=== PATIENT | male | born 1965 | race Caucasian/White ===

== ENCOUNTER 2018-01-31 12:18 | Emergency (ER) | payer SELFPAY ==
[~2018-01-31 12:18] MED LIST: ALBU17I INH; AMOX875 PO; PRED10PA PO
[2018-01-31 12:45] VITALS: BP 126/67; PULSE 86; RESP 17; TEMP 98.4; O2SAT 100
[2018-01-31] MEDS ORDERED: KETOROLAC TROMETHAMINE 30 MG/ML (IVP) VIAL IV PUSH ONE (14:00)
[2018-01-31] MEDS ORDERED: SODIUM CHLOR 0.9% 1000 ML INJ 1,000 ML IV ONE (14:00)
--- NOTE | 2018-01-31 14:07 | PD ---
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 Patient states that the area "looked like a bug bite" 3 days ago but has since worsened. States that he cut the area open with a knife last night and attempted to squeeze pus from the wound. He endorses 10/ 10 pain in the ankle, worsened by weightbearing and range of motion. No alleviating factors reported. He denies fever, chills, nausea, vomiting. He has been ambulatory on the area with a limp. Patient states that he has not seen a doctor " in about 20 years." No treatment attempted at home. PFSH Past Medical History Autoimmune Disease: No Blood Disorders: No Cancer: Yes (LUNG CANCER, SARCOMA ABOVE LEFT EYE) Cardiovascular Problems: No Chemotherapy: No COPD: Yes Cerebrovascular Accident: No Diabetes: Yes Diminished Hearing: No Gastrointestinal Disorders: No GERD: Yes Genitourinary: No Headaches: No Hepatitis: Yes (HEP C) Hiatal Hernia: No Kidney Stones: No Musculoskeletal: No Neurologic: No Psychiatric: No Reproductive: No Respiratory: Yes (COPD) Integumentary: Yes (MRSA IN HIS LEFT UPPER ARM AND LEG) Immunizations Current: No Renal Failure: No Seizures: No Thyroid Disease: No Ulcer: No PNEUMOCCOCAL Vaccine (Year): 2 Past Surgical History Abdominal Surgery: Yes (L INGUINAL HERNIA REPAIRED) Cardiac Surgery: No Ear Surgery: No Endocrine Surgery: No Eye Surgery: No Genitourinary Surgery: No Gynecologic Surgery: No Neurologic Surgery: No Oral Surgery: No Pacemaker: No Thoracic Surgery: No Other Surgery: No Social History Alcohol Use: Yes (4 BEERS A WEEK) Tobacco Use: Yes (1 PK DAILY FOR 22 YEARS) 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) Allergies-Medications (Allergen,Severity, Reaction): Coded Allergies: hornet venom (Unverified Allergy, Severe, Anaphylaxis, 04/03/17) clarithromycin (Unverified Allergy, Intermediate, HIVES, 04/03/17) sulfamethoxazole (Unverified Allergy, Unknown, 04/03/17) trimethoprim (Unverified Allergy, Unknown, 04/03/17) Reported Meds & Prescriptions Reported Meds & Active Scripts Active Ibuprofen 800 Mg Tab 800 Mg PO Q8H PRN Clindamycin (Clindamycin HCl) 150 Mg Cap 450 Mg PO Q8HR 7 Days Amoxicillin 875 Mg Tab 875 Mg PO BID Prednisone 10 Mg Angel 60 Mg PO DAILY 5 Days Proventil Mdi (Albuterol Sulfate) 17 Gm Aero 2 Puff INH Q6 Review of Systems Except as stated in HPI: all other systems reviewed are Neg Physical Exam Narrative GENERAL: Well-nourished, well-developed patient deeply tanned white male in no acute distress.. SKIN: Focused skin assessment warm/dry. SKIN: There is an warm, erythematous, tender, indurated area in the left anterior ankle which measures about 2 cm in diameter. It is fluctuant, open with a small amount of purulent drainage present. There is a zone of inflammation around it but no lymphangitis. HEAD: Normocephalic. EYES: No scleral icterus. No injection or drainage. NECK: Supple, trachea midline. No JVD or lymphadenopathy. CARDIOVASCULAR: Regular rate and rhythm without murmurs, gallops, or rubs. RESPIRATORY: Breath sounds equal bilaterally. No accessory muscle use. Mild end expiratory wheezing. GASTROINTESTINAL: Abdomen soft, non-tender, nondistended. Right-sided inguinal hernia, easily reducible. MUSCULOSKELETAL: No cyanosis, or edema. FOCUSED RIGHT LOWER EXTREMITY EXAM: 2+ radial pulse. Entire foot is tender to palpation. Abscess on the anterior ankle. Fluctuance noted of the right malleolus. Edema to the mid jeong. Patient is able to weakly flex and extend the ankle. He is able to wiggle the toes. Sensation intact to light touch distally. Cap refill less than 2 seconds. BACK: Nontender without obvious deformity. No CVA tenderness. Data Data Last Documented VS Vital Signs Date Time Temp Pulse Resp B/P (MAP) Pulse Ox O2 Delivery O2 Flow Rate FiO2 01/31/18 14:17 77 18 128/79 (95) 97 Room Air 01/31/18 12:45 98.4 Orders Orders Complete Blood Count With Diff (01/31/18 13:57) Blood Culture (01/31/18 13:57) Wound Culture And Gram Stain (01/31/18 13:57) Iv Access Insert/Monitor (01/31/18 13:57) Comprehensive Metabolic Panel (01/31/18 13:57) Lactic Acid (01/31/18 13:57) Ankle, Complete ([id number]) (01/31/18 13:57) Ct Ankle W Iv Contrast (01/31/18 ) Sodium Chlor 0.9% 1000 Ml Inj (Ns 1000 M (01/31/18 14:00) Ketorolac Inj (Toradol Inj) (01/31/18 14:00) Iohexol 350 Inj (Omnipaque 350 Inj) (01/31/18 16:19) Clindamycin 900 Mg/Ns Premix (Cleocin 90 (01/31/18 16:45) Lidocaine Pf 1% Inj (Xylocaine-Mpf 1% In (01/31/18 16:45) Ed Discharge Order (01/31/18 17:36) Labs Laboratory Tests Test 01/31/18 14:14 White Blood Count 7.0 TH/MM3 Red Blood Count 4.64 MIL/MM3 Hemoglobin 14.5 GM/DL Hematocrit 41.2 % Mean Corpuscular Volume 88.7 FL Mean Corpuscular Hemoglobin 31.2 PG Mean Corpuscular Hemoglobin Concent 35.2 % Red Cell Distribution Width 16.7 % Platelet Count 204 TH/MM3 Mean Platelet Volume 8.2 FL Neutrophils (%) (Auto) 71.5 % Lymphocytes (%) (Auto) 15.9 % Monocytes (%) (Auto) 11.3 % Eosinophils (%) (Auto) 0.9 % Basophils (%) (Auto) 0.4 % Neutrophils # (Auto) 5.0 TH/MM3 Lymphocytes # (Auto) 1.1 TH/MM3 Monocytes # (Auto) 0.8 TH/MM3 Eosinophils # (Auto) 0.1 TH/MM3 Basophils # (Auto) 0.0 TH/MM3 CBC Comment DIFF FINAL Differential Comment Blood Urea Nitrogen 21 MG/DL Creatinine 1.34 MG/DL Random Glucose 167 MG/DL Total Protein 8.0 GM/DL Albumin 3.4 GM/DL Calcium Level 8.7 MG/DL Alkaline Phosphatase 105 U/L Aspartate Amino Transf (AST/SGOT) 15 U/L Alanine Aminotransferase (ALT/SGPT) 18 U/L Total Bilirubin 0.5 MG/DL Sodium Level 139 MEQ/L Potassium Level 5.1 MEQ/L Chloride Level 105 MEQ/L Carbon Dioxide Level 24.7 MEQ/L Anion Gap 9 MEQ/L Estimat Glomerular Filtration Rate 56 ML/MIN Lactic Acid Level 1.8 mmol/L MDM Medical Decision Making Medical Screen Exam Complete: Yes Emergency Medical Condition: Yes Differential Diagnosis Abscess versus cellulitis versus osteomyelitis versus diabetic foot wound versus other Narrative Course 52-year-old male with PMH of MRSA, 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 Patient's afebrile on presentation. On exam there is an area of abscess, weeping a small amount of purulent fluid, on the anterior right ankle with surrounding edema and cellulitic changes. IV was established. Blood cultures were obtained. Wound cultures were obtained. Patient was administered 1 L normal saline, 30 mg Toradol IV. CBC: WBC 7.0. Hemoglobin 14.5. CMP: BUN 21, creatinine 1.34. Lactic acid 1.8. Ankle x-ray: Soft tissue swelling without evidence of acute bony abnormality. CT ankle: Thick walled fluid collection along the anterior surface of the foot adjacent to the talus as described above compatible with a suspected clinical finding of an abscess. No evidence of ruptured tender or acute bony abnormality per radiology read. Abscess I&D was performed. Please see my procedure note for details. Patient was administered 900 mg clindamycin IV. He is prescribed 450 mg clindamycin 3 times daily 7 days. He is instructed to keep the wound clean, dry and covered , return to the ED in 2 days for packing removal. We discussed signs of worsening, reasons to return to the ED. Patient indicated understanding of instructions and is agreeable to care plan. He is stable and discharged home. Procedures Procedure Narrative INCISION AND DRAINAGE OF ABSCESS: The area was prepped and was sterilely draped. A subcutaneous wheal of 1 % Xylocaine with a total number 6 mL was used to anesthetize the area properly. A number 11 scalpel was used to make a 1 -cm incision across the area of the abscess. The abscess was drained, complex loculations were broken down, and irrigated with normal saline. Cultures were obtained. Packing was placed in the wound. Sterile dressing applied. Patient advised to have packing removed in two days. Diagnosis Primary Impression: Abscess Referrals: [facility] Additional Instructions: Rest, hydrate. Keep your wound clean, dry and covered. Begin antibiotics tomorrow and take them until every dose is gone. 800 mg ibuprofen up to 3 times a day as needed for pain. Return to the ED in 2 days for wound recheck and packing removal. Follow[facility] with the [facility]. Return to the ED for any urgent or emergent medical condition. Med/Other Pt SpecificInfo: Prescription(s) given Scripts Ibuprofen (Ibuprofen) 800 Mg Tab 800 MG PO Q8H Y for Pain/Inflammation, #15 TAB 0 Refills Prov: Ervin Jamison MD 01/31/18 Clindamycin (Clindamycin) 150 Mg Cap 450 MG PO Q8HR for Infection for 7 Days, CAP 0 Refills Prov: Ervin Jamison MD 01/31/18 Disposition: 01 DISCHARGE HOME Condition: Stable Evy Reyes Jan 31, 2018 14:07
[2018-01-31 14:17] VITALS: BP 128/79; PULSE 77; RESP 18; O2SAT 97
[2018-01-31 14:54] LABS: BASOPHIL % 0.4 % (0.0-2.0); EOSINOPHIL # 0.1 TH/MM3 (0-0.4); EOSINOPHIL % 0.9 % (0.0-4.0); HEMATOCRIT 41.2 % (39.0-51.0); HEMOGLOBIN 14.5 GM/DL (13.0-17.0); LYMPH % 15.9 % (9.0-44.0); LYMPHOCYTE # 1.1 TH/MM3 (1.0-4.8); MEAN CELL VOLUME 88.7 FL (80.0-100.0); MEAN CORPUSCULAR HEMOGLOBIN 31.2 PG (27.0-34.0); MEAN CORPUSCULAR HGB CONC 35.2 % (32.0-36.0); MEAN PLATELET VOLUME 8.2 FL (7.0-11.0); MONO % 11.3 % (0.0-8.0); MONOCYTE # 0.8 TH/MM3 (0-0.9); NEUT % 71.5 % (16.0-70.0); PLATELET COUNT 204 TH/MM3 (150-450); RED BLOOD COUNT 4.64 MIL/MM3 (4.50-5.90); RED CELL DISTRIBUTION WIDTH 16.7 % (11.6-17.2)
--- NOTE | 2018-01-31 14:58 | RADRPT ---
EXAM DATE: 01/31/2018 2:45 PM EDT AGE/SEX: 52 years / Male INDICATIONS: Anterior ankle pain. Patient stated he was bitten a week ago, but unsure by what. CLINICAL DATA: This is the patient's initial encounter. Patient reports that signs and symptoms have been present for 1 week and indicates a pain score of 7/10. MEDICAL/SURGICAL HISTORY: None. None. COMPARISON: No prior exams available for comparison. FINDINGS: Marked generalized soft tissue swelling of the right ankle extending into the hindfoot is noted. Ther e is no evidence of acute fracture, dislocation or significant arthropathy. CONCLUSION: Soft tissue swelling without evidence of acute bony abnormality. Electronically signed by: Michael Castro MD 01/31/2018 2:56 PM EDT
[2018-01-31 15:13] LABS: ALKALINE PHOSPHATASE 105 U/L (45-117); TOTAL BILIRUBIN ADULT 0.5 MG/DL (0.2-1.0)
[2018-01-31 15:21] LABS: ALBUMIN 3.4 GM/DL (3.4-5.0); ALT (GPT) 18 U/L (12-78); BICARBONATE 24.7 MEQ/L (21.0-32.0); BLOOD UREA NITROGEN 21 MG/DL (7-18); CALCIUM 8.7 MG/DL (8.5-10.1); CHLORIDE 105 MEQ/L (98-107); CREATININE 1.34 MG/DL (0.60-1.30); GLOMERULAR FILTRATION RATE 56 ML/MIN (>89); GLUCOSE,RANDOM 167 MG/DL (74-106); SODIUM (NA) 139 MEQ/L (136-145)
[2018-01-31 15:23] LABS: AST (GOT) 15 U/L (15-37)
[2018-01-31] MEDS ORDERED: IOHEXOL 350 MG/ML 10 ML VIAL (for RAD DIAG) IVCONTRAST ONE (16:19)
--- NOTE | 2018-01-31 16:26 | RADRPT ---
EXAM DATE: 01/31/2018 4:17 PM EDT AGE/SEX: 52 years / Male INDICATIONS: Abscess on top of right ankle, swelling. CLINICAL DATA: This is the patient's initial encounter. Patient reports that signs and symptoms have been present for 1 week and indicates a pain score of 9/10. MEDICAL/SURGICAL HISTORY: Chronic obstructive pulmonary disease. Hepatitis C. Diabetes. MRSA None. RADIATION DOSE: 3.11 CTDI (mGy) COMPARISON: No prior exams available for comparison. TECHNIQUE: Multiple contiguous axial images were acquired using a multirow detector CT scanner after intravenous administration of 70 ml Omnipaque 350 (iohexol) nonionic water-soluble contrast as a si ngle exam dose. Multiplanar reconstruction was performed in the sagittal and coronal planes. Using automated exposure control and adjustment of the mA and/or kV according to patient size, radiation do se was kept as low as reasonably achievable to obtain optimal diagnostic quality images. FINDINGS: Bones: The bony structures about the ankle are in normal alignment. The distal tibia, distal fibula , talus and calcaneus are intact. No fracture is seen. Joints: No significant arthropathy or bony hypertrophy is seen. Soft Tissues: A thick walled subcutaneous fluid collection is identified anterior to the extensor te ndons at the level of the talus. It measures 1.6 x 2 x 2.4 cm in size. There is no clear evidence of tendon rupture. Definite soft tissue swelling is seen surrounding the fluid collection. Other: No foreign bodies seen. Post Contrast: No abnormal areas of enhancement are seen in the marrow or soft tissues. CONCLUSION: 1. Thick-walled fluid collection along the anterior surface of the foot adjacent to the talus as jw cribed above compatible with the suspected clinical finding of an abscess. 2. No evidence of ruptured tendon or acute bony abnormality. Electronically signed by: Michael Castro MD 01/31/2018 4:25 PM EDT
[2018-01-31] MEDS ORDERED: LIDOCAINE HCL 1% PF 30 ML VIAL INFIL ONE (16:45)
[2018-01-31] MEDS ORDERED: CLINDAMYCIN 900 MG/NS PREMIX 50 ML IV ONE (16:45)
[2018-01-31] MEDS ORDERED: CLIN150C14 PO (16:52)
[2018-01-31] MEDS ORDERED: IBUP1TAB7 PO (16:52)
== END 2018-01-31 18:07 | disposition home or self-care (01) ==
LOC: NEPC 12:18
DX: L02.415 Cutaneous abscess of right lower limb (principal); B96.89 Other specified bacterial agents as the cause of diseases classified elsewhere; J44.9 Chronic obstructive pulmonary disease, unspecified; E11.9 Type 2 diabetes mellitus without complications; Z86.14 Personal history of Methicillin resistant Staphylococcus aureus infection; Z85.118 Personal history of other malignant neoplasm of bronchus and lung; B19.20 Unspecified viral hepatitis C without hepatic coma; F17.210 Nicotine dependence, cigarettes, uncomplicated; Z88.2 Allergy status to sulfonamides; Z79.899 Other long term (current) drug therapy
CPT/HCPCS: 10061; 73610; 73701; 80053; 83605; 85025; 87040; 87070; 87077; 87186; 96361; 96374; 96375; 99285; J1885; J7030; Q9967

== ENCOUNTER 2018-06-27 11:04 | Inpatient (IN) ==
[2018-06-27] MEDS ORDERED: MethylPREDNISolone Sod Succinate Inj 125 MG/2 ML Vial IV.PUSH ONE (11:23)
--- NOTE | 2018-06-27 11:35 | ED ---
HPI General Chief Complaint: Respiratory Symptoms Stated Complaint: Resp Time Seen by Provider: 06/27/18 11:23 Source: patient Limitations: no limitations History of Present Illness 53 YO M with PMH of IVDA, COPD, MRSA presents to the ED for evaluation of 2 week history of worsening shortness of breath and back pain radiating to the chest. Pain is sharp, intermittent, worsened by exertion. Rated 8/10 maximally. No chest pain currently. He states that he smoked crack 2 days ago. He states that he has not injected drugs in over 2 weeks. The patient reports chronic cough, now productive of yellow phlegm. He complains of pain in the left biceps. Onset 2 weeks ago while lifting a heavy box. Patient states that he is unable to fully extend the elbow. He denies numbness, tingling, weakness, of the extremity. He also complains of dysuria, urinary urgency and incontinence. He denies penile discharge, testicular pain, groin lesions. Also complains of a wound on the top of the right foot. Patient states that he was jabbed by the spine of a cactus. He states that he had an abscess there that ruptured and drained a large amount of purulent drainage. He has been ambulatory on the leg. He has never had a cardiac stress test. He has been smoking since he was a teenager. Related Data Home Medications Medication Instructions Recorded Confirmed No Known Home Medications 06/27/18 06/27/18 Allergies Allergy/AdvReac Type Severity Reaction Status Date / Time hornet venom Allergy Severe Anaphylaxis Unverified 04/03/17 20:07 clarithromycin Allergy Intermediate HIVES Unverified 04/03/17 20:07 sulfamethoxazole Allergy Unknown Hives Verified 06/27/18 11:23 trimethoprim Allergy Unknown Hives Verified 06/27/18 11:23 Review of Systems ROS: all other systems reviewed are negative [facility] Medical History Medical History COPD (chronic obstructive pulmonary disease) (Acute) Diabetes (Acute) Emphysema lung (Acute) Hernia (Acute) High cholesterol (Acute) Social History Social History Substance History: Active Abuse Second Hand Smoke Exposure: Yes Smoking Status: Current every day smoker Tobacco Type: Cigarettes How Often Do You Have a Drink Containing Alcohol: Never Recent Travel in [place] within the Last 8 Weeks: No Recent Out of Country Travel within the Last 8 Weeks: No Substance Abuse Detail Crack/Cocaine: Substance Use Status: Active Route Used Substance Abuse: Inhalation Reason for Use: Feels Good and Get High Heroin: Substance Use Status: Active Route Used Substance Abuse: Intravenously Reason for Use: Get High Immunization History Tetanus Immunization: Unsure Exam Narrative Exam Narrative: GENERAL: Thin, chronically ill-appearing white male in no acute distress. SKIN: Focused skin assessment warm/dry. 2-3 cm crust of the dorsum of the right foot. Mild localized erythema and tenderness. No fluctuance. No warmth. No drainage. Similar wounds on the lateral aspect left lower leg. HEAD: Atraumatic. Normocephalic. EYES: Pupils equal and round. No scleral icterus. No injection or drainage. ENT: No nasal bleeding or discharge. Mucous membranes pink and moist. NECK: Trachea midline. No JVD. CARDIOVASCULAR: Regular rate and rhythm. No murmur appreciated. RESPIRATORY: No accessory muscle use. Coarse breath sounds in all lung perez. Breath sounds equal bilaterally. GASTROINTESTINAL: Abdomen soft, non-tender, nondistended. Hepatic and splenic margins not palpable. MUSCULOSKELETAL: Visible deformity of the left bicep. Speeds test positive. Neurovascularly intact distally in the left extremity. Positive no clubbing. No cyanosis. No edema. NEUROLOGICAL: Awake and alert. No obvious cranial nerve deficits. Motor grossly within normal limits. Normal speech. PSYCHIATRIC: Appropriate mood and affect; insight and judgment normal. Course Initial Documented Vital Signs Temperature 99.3 F 06/27/18 11:14 Pulse Rate 78 06/27/18 11:14 Respiratory Rate 20 06/27/18 11:14 Blood Pressure 135/75 06/27/18 11:14 Pulse Oximetry 97 06/27/18 11:14 Last Documented Vital Signs Temperature 99.3 F 06/27/18 11:14 Pulse Rate 78 06/27/18 15:55 Respiratory Rate 17 06/27/18 15:55 Blood Pressure 126/65 06/27/18 15:55 Pulse Oximetry 100 06/27/18 15:55 Medical Decision Making MDM Narrative Medical decision making narrative: 53 YO M with PMH of IVDA, COPD, MRSA presents to the ED for evaluation of 2 week history of worsening shortness of breath and back pain radiating to the chest. Pain is sharp, intermittent, worsened by exertion. No chest pain currently. He states that he smoked crack 2 days ago. Afebrile, O2 saturations 97% on room air on presentation. On physical exam the lung sounds are coarse bilaterally. Of note the patient also has a suspected biceps tendon tear in the left arm and a resolving abscess of the dorsum of the right foot. Patient was administered IV steroids, duo nebs x2. Blood glucose 238, no leukocytosis, creatinine and BUN within normal limits. Elevated d-dimer triggered CTA which showed small infiltrates in the bilateral lung bases. On recheck patient reports improvement of his symptoms. He was administered a dose of doxycycline. He is agreeable to observation admission. I spoke with Dr. Garnica who agrees to accept the patient. Please see medicine notes for disposition. Medical Screen Exam Complete: Yes Emergency Medical Condition: Yes Differential Diagnosis Differential Diagnosis: COPD exacerbation versus PNA versus endocarditis versus ACS versus AAA versus biceps tendon rupture versus soft tissue abscess versus osteomyelitis versus UTI versus urethritis versus other Lab Data Result diagrams: 06/27/18 11:30 06/27/18 11:30 Lab Results 06/27/18 06/27/18 06/27/18 Range/Units 11:30 11:30 11:30 WBC 9.5 (4.0-11.0) th/mm3 RBC 4.38 L (4.50-5.90) mil/mm3 Hgb 13.1 (13.0-17.0) gm/dL Hct 37.8 L (39.0-51.0) % MCV 86.4 (80.0-100.0) fL MCH 29.8 (27.0-34.0) pg MCHC 34.5 (32.0-36.0) % RDW 22.4 H (11.6-17.2) % Plt Count 210 (150-450) th/mm3 MPV 9.5 (7.0-11.0) fL Neut % (Auto) 74.1 H (16.0-70.0) % Lymph % (Auto) 12.3 (9.0-44.0) % [place] % (Auto) 9.8 H (0.0-8.0) % Eos % (Auto) 2.6 (0.0-4.0) % Baso % (Auto) 1.2 (0.0-2.0) % Neut # (Auto) 7.0 (1.8-7.7) th/mm3 Lymph # (Auto) 1.2 (1.0-4.8) th/mm3 [place] # (Auto) 0.9 (0.0-0.9) th/mm3 Eos # (Auto) 0.3 (0.0-0.4) th/mm3 Baso # (Auto) 0.1 (0.0-0.2) th/mm3 WBC Differential . Differential Comment Auto diff final PT 13.0 H (9.8-11.6) sec INR 1.3 Ratio D-Dimer Quant (PE/DVT) 1.39 H (0.00-0.50) mg/L FEU Sodium 134 L (136-145) meq/L Potassium 4.5 (3.5-5.1) meq/L Chloride 100 (98-107) meq/L Carbon Dioxide 25.8 (21.0-32.0) meq/L Anion Gap 8 (5-15) meq/L BUN 11 (7-18) mg/dL Creatinine 0.76 (0.60-1.30) mg/dL Estimated GFR Greater than 89 (>89) mL/min Random Glucose 238 H (74-106) mg/dL Calcium 7.7 L (8.5-10.1) mg/dL Magnesium 1.8 (1.5-2.5) mg/dL Total Bilirubin 0.8 (0.2-1.0) mg/dL AST 286 H (15-37) U/L ALT 558 H (12-78) U/L Alkaline Phosphatase 796 H (45-117) U/L Troponin I Less than 0.02 L (0.02-0.05) ng/mL B-Natriuretic Peptide (0-100) pg/mL Total Protein 7.2 (6.4-8.2) g/dL Albumin 2.6 L (3.4-5.0) g/dL Urine Color (Yellw/Straw) Urine Clarity (Clear) Urine pH (5.0-8.5) Ur Specific [place] (1.002-1.035) Urine Protein (Neg-Trace) mg/dL Urine Glucose (UA) (Negative) mg/dL Urine Ketones (Negative) mg/dL Urine Occult Blood (Negative) Urine Nitrate (Negative) Urine Bilirubin (Negative) Urine Urobilinogen (Less than 2) mg/dL Ur Leukocyte Esterase (Negative) Urine RBC (0-3) /hpf Urine WBC (0-5) /hpf Urine Mucus (Occasional) /lpf Micro UA Comment Ur Microscopic Review Urine Culture Comments Urine Opiates Screen (Neg) Ur Barbiturates Screen (Neg) Ur Amphetamines Screen (Neg) U Benzodiazepines Scrn (Neg) Urine Cocaine Screen (Neg) U Cannabinoids Screen (Neg) Serum Alcohol (0-5) mg/dL Chlam trachomat DNA PCR (Not Detect) N.gonorrhoeae DNA (PCR) (Not Detect) 06/27/18 06/27/18 06/27/18 Range/Units 11:30 11:30 11:38 WBC (4.0-11.0) th/mm3 RBC (4.50-5.90) mil/mm3 Hgb (13.0-17.0) gm/dL Hct (39.0-51.0) % MCV (80.0-100.0) fL MCH (27.0-34.0) pg MCHC (32.0-36.0) % RDW (11.6-17.2) % Plt Count (150-450) th/mm3 MPV (7.0-11.0) fL Neut % (Auto) (16.0-70.0) % Lymph % (Auto) (9.0-44.0) % [place] % (Auto) (0.0-8.0) % Eos % (Auto) (0.0-4.0) % Baso % (Auto) (0.0-2.0) % Neut # (Auto) (1.8-7.7) th/mm3 Lymph # (Auto) (1.0-4.8) th/mm3 [place] # (Auto) (0.0-0.9) th/mm3 Eos # (Auto) (0.0-0.4) th/mm3 Baso # (Auto) (0.0-0.2) th/mm3 WBC Differential Differential Comment PT (9.8-11.6) sec INR Ratio D-Dimer Quant (PE/DVT) (0.00-0.50) mg/L FEU Sodium (136-145) meq/L Potassium (3.5-5.1) meq/L Chloride (98-107) meq/L Carbon Dioxide (21.0-32.0) meq/L Anion Gap (5-15) meq/L BUN (7-18) mg/dL Creatinine (0.60-1.30) mg/dL Estimated GFR (>89) mL/min Random Glucose (74-106) mg/dL Calcium (8.5-10.1) mg/dL Magnesium (1.5-2.5) mg/dL Total Bilirubin (0.2-1.0) mg/dL AST (15-37) U/L ALT (12-78) U/L Alkaline Phosphatase (45-117) U/L Troponin I (0.02-0.05) ng/mL B-Natriuretic Peptide 54 (0-100) pg/mL Total Protein (6.4-8.2) g/dL Albumin (3.4-5.0) g/dL Urine Color (Yellw/Straw) Urine Clarity (Clear) Urine pH (5.0-8.5) Ur Specific [place] (1.002-1.035) Urine Protein (Neg-Trace) mg/dL Urine Glucose (UA) (Negative) mg/dL Urine Ketones (Negative) mg/dL Urine Occult Blood (Negative) Urine Nitrate (Negative) Urine Bilirubin (Negative) Urine Urobilinogen (Less than 2) mg/dL Ur Leukocyte Esterase (Negative) Urine RBC (0-3) /hpf Urine WBC (0-5) /hpf Urine Mucus (Occasional) /lpf Micro UA Comment Ur Microscopic Review Urine Culture Comments Urine Opiates Screen Neg (Neg) Ur Barbiturates Screen Pos H (Neg) Ur Amphetamines Screen Neg (Neg) U Benzodiazepines Scrn Neg (Neg) Urine Cocaine Screen Pos H (Neg) U Cannabinoids Screen Pos H (Neg) Serum Alcohol Less than 3 (0-5) mg/dL Chlam trachomat DNA PCR (Not Detect) N.gonorrhoeae DNA (PCR) (Not Detect) 06/27/18 06/27/18 Range/Units 11:38 11:38 WBC (4.0-11.0) th/mm3 RBC (4.50-5.90) mil/mm3 Hgb (13.0-17.0) gm/dL Hct (39.0-51.0) % MCV (80.0-100.0) fL MCH (27.0-34.0) pg MCHC (32.0-36.0) % RDW (11.6-17.2) % Plt Count (150-450) th/mm3 MPV (7.0-11.0) fL Neut % (Auto) (16.0-70.0) % Lymph % (Auto) (9.0-44.0) % [place] % (Auto) (0.0-8.0) % Eos % (Auto) (0.0-4.0) % Baso % (Auto) (0.0-2.0) % Neut # (Auto) (1.8-7.7) th/mm3 Lymph # (Auto) (1.0-4.8) th/mm3 [place] # (Auto) (0.0-0.9) th/mm3 Eos # (Auto) (0.0-0.4) th/mm3 Baso # (Auto) (0.0-0.2) th/mm3 WBC Differential Differential Comment PT (9.8-11.6) sec INR Ratio D-Dimer Quant (PE/DVT) (0.00-0.50) mg/L FEU Sodium (136-145) meq/L Potassium (3.5-5.1) meq/L Chloride (98-107) meq/L Carbon Dioxide (21.0-32.0) meq/L Anion Gap (5-15) meq/L BUN (7-18) mg/dL Creatinine (0.60-1.30) mg/dL Estimated GFR (>89) mL/min Random Glucose (74-106) mg/dL Calcium (8.5-10.1) mg/dL Magnesium (1.5-2.5) mg/dL Total Bilirubin (0.2-1.0) mg/dL AST (15-37) U/L ALT (12-78) U/L Alkaline Phosphatase (45-117) U/L Troponin I (0.02-0.05) ng/mL B-Natriuretic Peptide (0-100) pg/mL Total Protein (6.4-8.2) g/dL Albumin (3.4-5.0) g/dL Urine Color Yellow (Yellw/Straw) Urine Clarity Hazy H (Clear) Urine pH 5.0 (5.0-8.5) Ur Specific [place] 1.021 (1.002-1.035) Urine Protein Negative (Neg-Trace) mg/dL Urine Glucose (UA) 500 or greater (Negative) mg/dL Urine Ketones Negative (Negative) mg/dL Urine Occult Blood Small H (Negative) Urine Nitrate Negative (Negative) Urine Bilirubin Negative (Negative) Urine Urobilinogen 4 or greater (Less than 2) mg/dL Ur Leukocyte Esterase Negative (Negative) Urine RBC 3 (0-3) /hpf Urine WBC 1 (0-5) /hpf Urine Mucus Few H (Occasional) /lpf Micro UA Comment Culture not ind Ur Microscopic Review Not Reportable Urine Culture Comments Culture not ind Urine Opiates Screen (Neg) Ur Barbiturates Screen (Neg) Ur Amphetamines Screen (Neg) U Benzodiazepines Scrn (Neg) Urine Cocaine Screen (Neg) U Cannabinoids Screen (Neg) Serum Alcohol (0-5) mg/dL Chlam trachomat DNA PCR Not detected (Not Detect) N.gonorrhoeae DNA (PCR) Not detected (Not Detect) Imaging Data Radiologist's impression: Chest X-Ray 06/27/18 11:23 CONCLUSION: No acute cardiopulmonary disease identified. Foot X-Ray 06/27/18 11:23 CONCLUSION: Unremarkable study. Upper Extremity Ultrasound 06/27/18 11:23 CONCLUSION: Heterogeneous fluid collection at the biceps myotendinous junction suggesting hematoma in the proper clinical setting. Recommend MRI of the elbow to evaluate for biceps tendon rupture versus biceps muscle tear. Chest CTA 06/27/18 12:29 CONCLUSION: 1. No evidence of pulmonary embolism. 2. Mild infiltrates are noted in both lower lung bases posteriorly. Discharge Plan Discharge Disposition Patient Disposition: 30 Still Patient Physicians Team ED Provider: Jeremy Anderson ED Midlevel Provider: Evy Reyes Primary Care Provider: UNKNOWN, Attending Provider: Laurie Garnica Discharge Interventions Interventions: Vital Signs Last Done: 06/27/18 15:55 Status ED Status: Admitted Observation Patient
--- NOTE | 2018-06-27 12:02 | XR ---
EXAM DATE: 06/27/2018 11:56 AM EST AGE/SEX: 53 years / Male INDICATIONS: Right foot pain from unknown injury, possible infection. CLINICAL DATA: This is the patient's initial encounter. Patient reports that signs and symptoms have been present for 1 day and indicates a pain score of 4/10. MEDICAL/SURGICAL HISTORY: None. None. COMPARISON: No prior exams available for comparison. FINDINGS: No definite fractures, or dislocations are identified. No definite lytic or sclerotic lesion is seen . The joint spaces are well maintained. CONCLUSION: Unremarkable study. Electronically signed by: Jose Peres MD 06/27/2018 12:01 PM EST
[2018-06-27 12:09] LABS: Baso # (Auto) 0.1 th/mm3 (0.0-0.2); Baso % (Auto) 1.2 % (0.0-2.0); Eos # (Auto) 0.3 th/mm3 (0.0-0.4); Eos % (Auto) 2.6 % (0.0-4.0); Hematocrit 37.8 % (39.0-51.0); Hemoglobin 13.1 gm/dL (13.0-17.0); Lymph # (Auto) 1.2 th/mm3 (1.0-4.8); Lymph % (Auto) 12.3 % (9.0-44.0); Mean Corpuscular HGB Conc 34.5 % (32.0-36.0); Mean Corpuscular Hemoglobin 29.8 pg (27.0-34.0); Mean Corpuscular Volume 86.4 fL (80.0-100.0); Mean Platelet Volume 9.5 fL (7.0-11.0); Mono # (Auto) 0.9 th/mm3 (0.0-0.9); Mono % (Auto) 9.8 % (0.0-8.0); Neut % (Auto) 74.1 % (16.0-70.0); Platelet Count 210 th/mm3 (150-450); Red Blood Count 4.38 mil/mm3 (4.50-5.90); Red Cell Distribution Width 22.4 % (11.6-17.2); White Blood Count 9.5 th/mm3 (4.0-11.0)
[2018-06-27 12:19] LABS: INR 1.3 Ratio
[2018-06-27 12:20] LABS: D-Dimer 1.39 mg/L FEU (0.00-0.50)
--- NOTE | 2018-06-27 12:28 | XR ---
EXAM DATE: 06/27/2018 12:21 PM EST AGE/SEX: 53 years / Male INDICATIONS: Short of breath. CLINICAL DATA: This is the patient's initial encounter. Patient reports that signs and symptoms have been present for 1 day and indicates a pain score of 0/10. MEDICAL/SURGICAL HISTORY: None. None. COMPARISON: [facility] – [place], 06/28/2013. . FINDINGS: Single AP view the chest. The lungs are clear. Cardiomediastinal silhouette within normal limits. No evidence of pleural effusion or pneumothorax. CONCLUSION: No acute cardiopulmonary disease identified. Electronically signed by: Maik Kidd MD 06/27/2018 12:27 PM EST
--- NOTE | 2018-06-27 12:28 | US ---
EXAM DATE: 06/27/2018 12:13 PM EST AGE/SEX: 53 years / Male INDICATIONS: Left bicep swelling and pain. CLINICAL DATA: This is the patient's initial encounter. Patient reports that signs and symptoms have been present for 2 weeks and indicates a pain score of 8/10. MEDICAL/SURGICAL HISTORY: Chronic obstructive pulmonary disease. Diabetes. Emphysema. IV miller g user. MRSA. Hyperlipidemia. Hernia. . I&D, left arm. COMPARISON: No prior exams available for comparison. FINDINGS: Focused sonographic examination was performed in the area of the distal biceps muscle and expected re gion of the biceps tendon. There is a prominent heterogeneous mixed echogenicity collection at the bi ceps myotendinous junction. This measures 3.5 x 2.2 x 3.7 cm. No internal color Doppler flow. Charact eristics suggest hematoma in the proper clinical setting. CONCLUSION: Heterogeneous fluid collection at the biceps myotendinous junction suggesting hematoma in the proper clinical setting. Recommend MRI of the elbow to evaluate for biceps tendon rupture versus biceps musc le tear. Electronically signed by: Maik Kidd MD 06/27/2018 12:27 PM EST
[2018-06-27 12:30] LABS: Alkaline Phosphatase 796 U/L (45-117); Total Protein 7.2 g/dL (6.4-8.2)
[2018-06-27 12:36] LABS: Bilirubin,Urine Negative (Negative); Clarity,Urine Hazy (Clear); Color,Urine Yellow (Yellw/Straw); Glucose,Urine (UA) 500 or Greater mg/dL (Negative); Leukocyte Esterase,Urine Negative (Negative); Mucus,Urine Few /lpf (Occasional); Nitrite,Urine Negative (Negative); Specific Gravity,Urine 1.021 (1.002-1.035); Urobilinogen,Urine 4 or Greater mg/dL (Less than 2)
[2018-06-27 12:42] LABS: Amphetamine Screen,Urine Neg (Neg); Barbiturate Screen,Urine Pos (Neg); Cannabinoid Screen,Urine Pos (Neg); Cocaine Screen,Urine Pos (Neg)
[2018-06-27 12:43] LABS: Alanine Aminotransferase 558 U/L (12-78); Albumin 2.6 g/dL (3.4-5.0); Anion Gap 8 meq/L (5-15); Aspartate Aminotransferase 286 U/L (15-37); Blood Urea Nitrogen 11 mg/dL (7-18); Calcium 7.7 mg/dL (8.5-10.1); Carbon Dioxide 25.8 meq/L (21.0-32.0); Chloride 100 meq/L (98-107); Glomerular Filtration Rate Greater Than 89 mL/min (>89); Glucose,Random 238 mg/dL (74-106); Magnesium 1.8 mg/dL (1.5-2.5); Sodium 134 meq/L (136-145)
[2018-06-27] MEDS ORDERED: Sod Chloride 0.9% Inj 1,000 ML IV.SIG ONE (12:46)
[2018-06-27 12:47] LABS: Opiate Screen,Urine Neg (Neg)
[2018-06-27 12:48] LABS: Potassium 4.5 meq/L (3.5-5.1)
[2018-06-27] MEDS ORDERED: Morphine Inj 4 MG/ML Vial IV.PUSH ONE (13:34)
--- NOTE | 2018-06-27 16:23 | CT ---
EXAM DATE: 06/27/2018 4:10 PM EST AGE/SEX: 53 years / Male INDICATIONS: Shortness of breath for 1 week. CLINICAL DATA: This is the patient's initial encounter. Patient reports that signs and symptoms have been present for 1 week and indicates a pain score of 0/10. MEDICAL/SURGICAL HISTORY: Chronic obstructive pulmonary disease. Diabetes. None. RADIATION DOSE: 8.61 CTDI (mGy) COMPARISON: No prior exams available for comparison. TECHNIQUE: Volumetric scanning was performed using a multi-row detector CT scanner during bolus infu alma of 69 ml Omnipaque 350 (iohexol) nonionic water-soluble contrast as a single exam dose. The renee a was post processed with a variety of visualization algorithms including full volume maximum intensi ty projection and sliding thin slab reformation. Using automated exposure control and adjustment of t he mA and/or kV according to patient size, radiation dose was kept as low as reasonably achievable to obtain optimal diagnostic quality images. DICOM format image data is available electronically for r eview and comparison. FINDINGS: Pulmonary Arteries: No filling defects are seen in the pulmonary arteries out to the subsegmental ve ssels. The left and right pulmonary arteries are normal in diameter. Lung: There is some mild infiltrates in the posterior aspect of both lower lungs. Otherwise the lung perez are well aerated. Effusion: None. Mediastinum: No evidence of mediastinal or hilar adenopathy. Other: The axilla is unremarkable. CONCLUSION: 1. No evidence of pulmonary embolism. 2. Mild infiltrates are noted in both lower lung bases posteriorly. Electronically signed by: Vikas Shah MD 06/27/2018 4:21 PM EST
[2018-06-27] MEDS ORDERED: Acetaminophen 325 MG Tablet PO PRN (16:35)
[2018-06-27] MEDS ORDERED: Bisacodyl 10 MG Supp RECTAL PRN (16:35)
[2018-06-27] MEDS ORDERED: levoFLOXacin 500 MG Tablet PO SCH (16:45)
--- NOTE | 2018-06-27 16:48 | P.HP ---
History of Present Illness Primary Care Physician: UNKNOWN Chief Complaint: Shortness of breath History of Present Illness: This is a 53-year-old patient who presented to the ED with multiple complaints. He states that he has been short of breath for 1 week. He does have a history of COPD, does admit to smoking half pack per day cigarettes for many years. He also complains of left upper extremity pain and limited range of motion, he states that he was lifting something a week and half ago and since that time the pain is worsened as well as swelling. He denies numbness, tingling , weakness, of the extremity. It should also be noted that patient has complaints of pain to palpation at right testicle, testicle is swollen and enlarged and very painful to palpation. Patient does have a history of substance abuse, states that he last used IV drugs 2 weeks ago, denies any alcohol abuse. 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 Patient denies any fevers, chills, headaches, chest pain, abdominal pain, nausea, vomiting, diarrhea or dysuria. He does state that he has had a productive cough over the last week, with yellow phlegm. Patient also states he hit his right foot on a cactus and has had a wound for over a month, was able to express pus from it several times but has not healed since. Denies any recent antibiotic use. He also complains of dysuria, urinary urgency and incontinence with right testicular pain and swelling. It should also be noted that patient has history of hepatitis C, states he always has pain to his right upper quadrant, liver is enlarged upon assessment today, he states he has not been treated for hepatitis C due to financial reasons. LFTs are elevated upon presentation. Case management has been consulted. - Diagnosis (1) COPD with exacerbation (2) Bilateral pneumonia Review of Systems All other systems reviewed negative except as stated in HPI PMFSH - History History Provided By: Patient - Medical History Medical History: Medical History (Last Reviewed 06/27/18 @ 16:49 by Alissa Peters) COPD (chronic obstructive pulmonary disease) Diabetes Emphysema lung Hernia High cholesterol - Surgical History Surgical History: Surgical History (Last Updated 06/27/18 @ 17:41 by Alissa Peters) History of hand surgery - Family History Family History: Family History (Last Updated 06/27/18 @ 17:41 by Alissa Peters) Other Lung cancer - Social History I have reviewed the patient's Social History: Yes - Tobacco History Second Hand Smoke Exposure: Yes Tobacco Use In Past 30 Days: Yes Smoking Status: Current every day smoker Tobacco Type: Cigarettes - Alcohol History How Often Do You Have a Drink Containing Alcohol: Never - Substance Use History Substance History: Active Abuse - Substance Use Type Crack/Cocaine Status: Active Route Used: Inhalation Reason for Use: Feels Good, Get High Heroin Status: Active Route Used: Intravenously Reason for Use: Get High - Travel History Recent Travel in the [place] Within the Last 8 Weeks: No Recent Travel Out of the Country Within the Last 8 Weeks: No - Immunization History Tetanus Immunization: Unsure Medications and Allergies Active Medications: Active Medications Acetaminophen (Tylenol) 650 mg PO Q4H PRN PRN Reason: Temp > 100.4 Al Hydroxide/Mg Hydroxide (Milk Of Magnesia Liq) 30 ml PO Q12H PRN PRN Reason: Mild Constipation Albuterol (Duoneb Neb (Prn)) 1 ampul NEB Q2HR NEB PRN PRN Reason: SHORTNESS OF BREATH/WHEEZING Albuterol (Duoneb Neb (Shubham)) 1 ampul NEB Q6HR WHILE AWAKE NEB SHUBHAM Bisacodyl (Dulcolax Supp) 10 mg RECTAL DAILY PRN PRN Reason: SEVERE CONSITIPATION Lactulose (Lactulose Liq) 30 ml PO DAILY PRN PRN Reason: SEVERE CONSITIPATION Levofloxacin (Levaquin) 500 mg PO DAILY SHUBHAM Methylprednisolone Sodium Succinate (Solumedrol Inj) 40 mg IV.PUSH Q6H SHUBHAM Ondansetron HCl (Zofran Inj) 4 mg IV.PUSH Q6H PRN PRN Reason: NAUSEA OR VOMITING Sennosides (Senokot) 17.2 mg PO Q12H PRN PRN Reason: Moderate Constipation Allergies Allergy/AdvReac Type Severity Reaction Status Date / Time hornet venom Allergy Severe Anaphylaxis Unverified 04/03/17 20:07 clarithromycin Allergy Intermediate HIVES Unverified 04/03/17 20:07 sulfamethoxazole Allergy Unknown Hives Verified 06/27/18 11:23 trimethoprim Allergy Unknown Hives Verified 06/27/18 11:23 Home Medications Medication Instructions Recorded Confirmed Type No Known Home Medications 06/27/18 06/27/18 History Exam Vital signs: Vital Signs 06/27/18 11:14 06/27/18 11:41 06/27/18 11:42 Temperature 99.3 F Pulse Rate 78 77 74 Respiratory Rate 20 18 18 Blood Pressure 135/75 Pulse Oximetry 97 06/27/18 11:43 06/27/18 11:44 06/27/18 15:55 Temperature Pulse Rate 81 78 Respiratory Rate 18 17 Blood Pressure 126/65 Pulse Oximetry 97 100 Intake & Output 06/26/18 06/27/18 06/27/18 18:59 06:59 18:59 Intake Total 1000 / 1000 Balance 1000 / 1000 Weight 61.235 kg Intake: IV 1000 / 1000 NS Inj 1,000 ML @ Wide Open IV. 1000 / 1000 SIG BOLUS ONE Rx#:[id number] Narrative: GENERAL: Well-developed, well-nourished patient in [facility]. SKIN: Warm and dry. No rash. Right lower extremity wound measuring roughly 3x3cm indurated area without fluctuance, does have surrounding erythema. HEAD: Normocephalic. Atraumatic. EYES: Pupils equal and round. No scleral icterus. No injection or drainage. ENT: No nasal bleeding or discharge. Mucous membranes pink and moist. NECK: Supple. Trachea midline. CARDIOVASCULAR: Regular rate and rhythm. S1, S2 noted. No murmur appreciated. RESPIRATORY: No accessory muscle use. Expiratory wheezing posterior lobes. Breath sounds equal bilaterally. GASTROINTESTINAL: Abdomen soft, non-tender, nondistended. Normoactive bowel sounds x4. : Pain to right testicle. MUSCULOSKELETAL:Extremities without clubbing, cyanosis, or edema. Left upper extremity swelling with limited ROM. NEUROLOGICAL: Awake and alert. No obvious cranial nerve deficits. Motor grossly within normal limits. 5/5 muscle strength in bilateral upper and lower extremities. Normal speech. PSYCHIATRIC: Appropriate mood and affect; insight and judgment normal. Results - Labs CBC & Chem 7: 06/27/18 11:30 06/27/18 11:30 Labs: Laboratory Results - last 24 hr 06/27/18 06/27/18 06/27/18 11:30 11:30 11:30 WBC 9.5 RBC 4.38 L Hgb 13.1 Hct 37.8 L MCV 86.4 MCH 29.8 MCHC 34.5 RDW 22.4 H Plt Count 210 MPV 9.5 Neut % (Auto) 74.1 H Lymph % (Auto) 12.3 [place]unnels % (Auto) 9.8 H Eos % (Auto) 2.6 Baso % (Auto) 1.2 Neut # (Auto) 7.0 Lymph # (Auto) 1.2 [place] # (Auto) 0.9 Eos # (Auto) 0.3 Baso # (Auto) 0.1 WBC Differential . Differential Comment Auto diff final PT 13.0 H INR 1.3 D-Dimer Quant (PE/DVT) 1.39 H Sodium 134 L Potassium 4.5 Chloride 100 Carbon Dioxide 25.8 Anion Gap 8 BUN 11 Creatinine 0.76 Estimated GFR Greater than 89 Random Glucose 238 H Calcium 7.7 L Magnesium 1.8 Total Bilirubin 0.8 AST 286 H ALT 558 H Alkaline Phosphatase 796 H Troponin I Less than 0.02 L B-Natriuretic Peptide Total Protein 7.2 Albumin 2.6 L Urine Color Urine Clarity Urine pH Ur Specific [place] Urine Protein Urine Glucose (UA) Urine Ketones Urine Occult Blood Urine Nitrate Urine Bilirubin Urine Urobilinogen Ur Leukocyte Esterase Urine RBC Urine WBC Urine Mucus Micro UA Comment Ur Microscopic Review Urine Culture Comments Urine Opiates Screen Ur Barbiturates Screen Ur Amphetamines Screen U Benzodiazepines Scrn Urine Cocaine Screen U Cannabinoids Screen Serum Alcohol Chlam trachomat DNA PCR N.gonorrhoeae DNA (PCR) 06/27/18 06/27/18 06/27/18 11:30 11:30 11:38 WBC RBC Hgb Hct MCV MCH MCHC RDW Plt Count MPV Neut % (Auto) Lymph % (Auto) [place] % (Auto) Eos % (Auto) Baso % (Auto) Neut # (Auto) Lymph # (Auto) [place] # (Auto) Eos # (Auto) Baso # (Auto) WBC Differential Differential Comment PT INR D-Dimer Quant (PE/DVT) Sodium Potassium Chloride Carbon Dioxide Anion Gap BUN Creatinine Estimated GFR Random Glucose Calcium Magnesium Total Bilirubin AST ALT Alkaline Phosphatase Troponin I B-Natriuretic Peptide 54 Total Protein Albumin Urine Color Urine Clarity Urine pH Ur Specific [place] Urine Protein Urine Glucose (UA) Urine Ketones Urine Occult Blood Urine Nitrate Urine Bilirubin Urine Urobilinogen Ur Leukocyte Esterase Urine RBC Urine WBC Urine Mucus Micro UA Comment Ur Microscopic Review Urine Culture Comments Urine Opiates Screen Neg Ur Barbiturates Screen Pos H Ur Amphetamines Screen Neg U Benzodiazepines Scrn Neg Urine Cocaine Screen Pos H U Cannabinoids Screen Pos H Serum Alcohol Less than 3 Chlam trachomat DNA PCR N.gonorrhoeae DNA (PCR) 06/27/18 06/27/18 11:38 11:38 WBC RBC Hgb Hct MCV MCH MCHC RDW Plt Count MPV Neut % (Auto) Lymph % (Auto) [place] % (Auto) Eos % (Auto) Baso % (Auto) Neut # (Auto) Lymph # (Auto) [place] # (Auto) Eos # (Auto) Baso # (Auto) WBC Differential Differential Comment PT INR D-Dimer Quant (PE/DVT) Sodium Potassium Chloride Carbon Dioxide Anion Gap BUN Creatinine Estimated GFR Random Glucose Calcium Magnesium Total Bilirubin AST ALT Alkaline Phosphatase Troponin I B-Natriuretic Peptide Total Protein Albumin Urine Color Yellow Urine Clarity Hazy H Urine pH 5.0 Ur Specific [place] 1.021 Urine Protein Negative Urine Glucose (UA) 500 or greater Urine Ketones Negative Urine Occult Blood Small H Urine Nitrate Negative Urine Bilirubin Negative Urine Urobilinogen 4 or greater Ur Leukocyte Esterase Negative Urine RBC 3 Urine WBC 1 Urine Mucus Few H Micro UA Comment Culture not ind Ur Microscopic Review Not Reportable Urine Culture Comments Culture not ind Urine Opiates Screen Ur Barbiturates Screen Ur Amphetamines Screen U Benzodiazepines Scrn Urine Cocaine Screen U Cannabinoids Screen Serum Alcohol Chlam trachomat DNA PCR Not detected N.gonorrhoeae DNA (PCR) Not detected - Imaging Impressions Chest X-Ray 06/27/18 11:23 CONCLUSION: No acute cardiopulmonary disease identified. Foot X-Ray 06/27/18 11:23 CONCLUSION: Unremarkable study. Upper Extremity Ultrasound 06/27/18 11:23 CONCLUSION: Heterogeneous fluid collection at the biceps myotendinous junction suggesting hematoma in the proper clinical setting. Recommend MRI of the elbow to evaluate for biceps tendon rupture versus biceps muscle tear. Chest CTA 06/27/18 12:29 CONCLUSION: 1. No evidence of pulmonary embolism. 2. Mild infiltrates are noted in both lower lung bases posteriorly. Caprini VTE Risk Assessment Caprini VTE Risk Assessment: No/Low Risk (score <= 1) Caprini Risk Assessment Model: Point Value = 1 Point Value = 2 Point Value = 3 Point Value = 5 Age 41-60 Minor surgery BMI > 25 kg/m2 Swollen legs Varicose veins or History of unexplained or recurrent spontaneous Oral contraceptives or hormone replacement Sepsis (< 1 month) Serious lung disease, including pneumonia (< 1 month) Abnormal pulmonary function Acute myocardial infarction Congestive heart failure (< 1 month) History of inflammatory bowel disease Medical patient at bed rest Age 61-74 Arthroscopic surgery Major open surgery (> 45 min) Laparoscopic surgery (> 45 min) Malignancy Confined to bed (> 72 hours) Immobilizing plaster cast Central venous access Age >= 75 History of VTE Family history of VTE Factor V Leiden Prothrombin [id number] Lupus anticoagulant Anticardiolipin antibodies Elevated serum homocysteine Heparin-induced thrombocytopenia Other congenital or acquired thrombophilia Stroke (< 1 month) Elective arthroplasty Hip, pelvis, or leg fracture Acute spinal cord injury (< 1 month) Prophylaxis Regimen: Total Risk Factor Score Risk Level Prophylaxis Regimen 0-1 Low Early ambulation 2 Moderate Order ONE of the following: *Sequential Compression Device (SCD) *Heparin 5000 units SQ BID 3-4 Higher Order ONE of the following medications: *Heparin 5000 units SQ TID *Enoxaparin/Lovenox 40 mg SQ daily (WT < 150 kg, CrCl > 30 mL/min) *Enoxaparin/Lovenox 30 mg SQ daily (WT < 150 kg, CrCl > 10-29 mL/min) *Enoxaparin/Lovenox 30 mg SQ BID (WT < 150 kg, CrCl > 30 mL/min) AND/OR *Sequential Compression Device (SCD) 5 or more Highest Order ONE of the following medications: *Heparin 5000 units SQ TID (Preferred with Epidurals) *Enoxaparin/Lovenox 40 mg SQ daily (WT < 150 kg, CrCl > 30 mL/min) *Enoxaparin/Lovenox 30 mg SQ daily (WT < 150 kg, CrCl > 10-29 mL/min) *Enoxaparin/Lovenox 30 mg SQ BID (WT < 150 kg, CrCl > 30 mL/min) AND *Sequential Compression Device (SCD) Assessment and Plan - Assessment (1) COPD with exacerbation Code(s): J44.1 - Chronic obstructive pulmonary disease with (acute) exacerbation Status: Acute (2) Bilateral pneumonia Code(s): J18.9 - Pneumonia, unspecified organism Status: Acute - Plan This is a 53-year-old male patient with: COPD with exacerbation Bilateral community-acquired pneumonia pneumonia -Patient complains of shortness of breath x 1 week. Tobacco history. -D-dimer elevated, CTA done showing mild bilateral infiltrates. Negative for PE. -Duo nebs scheduled and as needed. -Patient given IV steroids, will continue. Wean. -Encourage use of IS. -Given 1 dose of doxycycline in ED. Will continue. -Supplemental O2 as needed to keep sats greater than 90%. Comfortable on room air. No hypoxia noted. Left upper arm swelling and limited range of motion rule out biceps tendon rupture -Patient states he has had left upper arm swelling x 1 week. -Left upper arm ultrasound showing possible hematoma. Recommendations for MRI for further imaging. Ordered and pending. Follow. Right testicular pain and swelling -Will order for right testicle ultrasound. -Toradol as needed. -Supportive care. Right lower extremity wound/cellulitis -Patient states he has expressed pus from wound, measuring roughly 3x3cm indurated area without fluctuance, does have surrounding erythema. No drainage at this time. -Continue Doxycycline, this should cover cellulitis. Elevated LFTs -Patient does admit to history of hepatitis C. Does not have insurance nor funds to pay for treatment. -Will monitor LFTs. Elevated random glucose -Glucose in the 200's on presentation. Will add Hemoglobin a1c. Pending. -No history of diabetes. -Accu check ACHS, sliding scale, cover as needed. Tobacco abuse: Encourage cessation. Nicotine patch. DVT prophylaxis: SCDs. Ambulation.
[2018-06-27] MEDS: MethylPREDNISolone Sod Succinate Inj 40 MG/ML Vial IV.PUSH SCH ×2 (17:44→22:25)
[2018-06-27] MEDS ORDERED: Dextrose 50% in Water 50 ML Vial IV.PUSH PRN (17:55)
--- NOTE | 2018-06-27 20:19 | MR ---
EXAM DATE: 06/27/2018 8:09 PM EST AGE/SEX: 53 years / Male INDICATIONS: . Left elbow pain, possible bicep tendon rupture. CLINICAL DATA: This is the patient's initial encounter. Patient reports that signs and symptoms have been present for 2 weeks and indicates a pain score of 8/10. MEDICAL/SURGICAL HISTORY: Diabetes mellitus type II. Hepatitis C. Hypercholesterolemia. COPD . Hernia repair, Right hand sx. COMPARISON: No prior exams available for comparison. TECHNIQUE: Multiplanar, multisequence MRI examination was performed without contrast. FINDINGS: Severe strain seen involving the distal myotendinous junction of the lateral head of biceps. There is an associated intramuscular hematoma that measures approximately 2.5 x 3.1 x 6.2 cm. I don't see a f luid-filled muscle or tendon tear. The tendon insertion is intact. No fractures or subluxations. No significant arthropathy or joint effusion. Distal triceps is normal. Common flexor and extensor tendons are normal. The collateral ligaments are normal. CONCLUSION: Distal myotendinous junction strain and hematoma of the lateral head of biceps without ru pture. Electronically signed by: Uri Connors MD 06/27/2018 8:18 PM EST
[2018-06-27 21:54] LABS: Hemoglobin A1c 7.4 % (4.3-6.0)
[2018-06-27] MEDS: guaiFENesin 600 MG ER Tablet PO SCH (21:55)
[2018-06-27] MEDS: Ketorolac Inj 30 MG/ML (IVP) Vial IV.PUSH PRN (21:57)
[2018-06-27] MEDS: Insulin NovoLOG Aspart Correctional Sugar Inj SQ SCH (21:58)
--- NOTE | 2018-06-27 22:53 | US ---
EXAM DATE: 06/27/2018 10:43 PM EST AGE/SEX: 53 years / Male INDICATIONS: Right testicle pain. CLINICAL DATA: This is the patient's initial encounter. Patient reports that signs and symptoms have been present for > 1 year and indicates a pain score of 5/10. MEDICAL/SURGICAL HISTORY: . Chronic obstructive pulmonary disease. Diabetes. Emphysema. IV drug user. MRSA. Hyperlipidemia. Hernia. . I&D, left arm. COMPARISON: No prior exams available for comparison. MEASUREMENTS: Right Testicle:__4.0 x 2.5 x 1.8 cm Left Testicle:__4.1 x 2.5 x 1.9 cm FINDINGS: RIGHT: Testicle: Homogeneous echotexture without intra or extratesticular mass. Blood flow is symmetric and within normal limits. Epididymis: Within normal limits. Hydrocele: Moderate-large hydrocele present. Varicocele: No evidence of varicocele. LEFT: Testicle: Homogeneous echotexture without intra or extratesticular mass. Blood flow is symmetric and within normal limits. Epididymis: Within normal limits. Hydrocele: Small hydrocele present. Varicocele: No evidence of varicocele. Scrotum: A right inguinal hernia is evident that appears to contain some bowel, most conspicuous dur ing Valsalva.. CONCLUSION: 1. Testes are within normal limits. 2. Nonspecific moderate right and small left hydrocele fluid. 3. Right inguinal hernia. Electronically signed by: Uri Connors MD 06/27/2018 10:51 PM EST
[2018-06-28 03:58] VITALS: RESP 16
[2018-06-28] MEDS: Ketorolac Inj 30 MG/ML (IVP) Vial IV.PUSH PRN ×2 (04:03→09:37)
[2018-06-28] MEDS: MethylPREDNISolone Sod Succinate Inj 40 MG/ML Vial IV.PUSH SCH ×2 (04:03→11:21)
[2018-06-28 08:48] VITALS: O2SAT 97
[2018-06-28 09:05] LABS: Albumin 2.9 g/dL (3.4-5.0); Calcium 8.2 mg/dL (8.5-10.1); Carbon Dioxide 21.8 meq/L (21.0-32.0); Total Protein 7.6 g/dL (6.4-8.2)
[2018-06-28] MEDS: guaiFENesin 600 MG ER Tablet PO SCH (09:09)
[2018-06-28] MEDS: Insulin NovoLOG Aspart Correctional Sugar Inj SQ SCH ×2 (09:36→13:16)
--- NOTE | 2018-06-28 11:57 | P.PN ---
Subjective Interval history: Patient is seen sitting up in bed. His is at bedside. He tells me that his breathing is much better. Denies any chest pain. Also reports that his foot infection is feeling better and is significantly less red and swollen. Still has some testicular and groin pain. Tells me today that he had an inguinal hernia on the other side that was previously repaired that was also painful before repair. He understands the danger of hernia incarceration and plans to follow-up outpatient for this. No nausea vomiting or diarrhea. He has been urinating normally and has not seen any blood in his urine. Physical Exam Vital signs: Vital Signs 06/27/18 15:55 06/27/18 18:09 06/27/18 23:32 Temperature 98.2 F Pulse Rate 78 64 Respiratory Rate 17 18 Blood Pressure 126/65 126/81 Pulse Oximetry 100 97 97 06/28/18 03:58 06/28/18 08:00 06/28/18 08:47 Temperature 97.5 F L 97.9 F Pulse Rate 52 L 57 L 61 Respiratory Rate 16 16 16 Blood Pressure 135/82 143/87 H Pulse Oximetry 96 98 97 Intake & Output 06/27/18 06/28/18 06/28/18 18:59 06:59 18:59 Intake Total 1500 / 1500 220 / 220 Output Total 250 / 250 Balance 1500 / 1500 -30 / -30 Weight 61.235 kg 61.235 kg Intake: IV 1000 / 1000 NS Inj 1,000 ML @ Wide Open IV. 1000 / 1000 SIG BOLUS ONE Rx#:[id number] Oral 500 / 500 220 / 220 Output: Urine 250 / 250 Other: # Voids 1 Date of Last Bowel Movement 06/27/18 06/27/18 Weight On Admission 61.235 kg Narrative: GENERAL: Well-developed, well-nourished patient in [facility]. SKIN: Warm and dry. No rash. Right lower extremity wound measuring roughly 3x3cm indurated area without fluctuance, does have surrounding erythema. HEAD: Normocephalic. Atraumatic. CARDIOVASCULAR: Regular rate and rhythm. RESPIRATORY: No accessory muscle use. Mild wheezing. Breath sounds equal bilaterally. GASTROINTESTINAL: Abdomen soft, non-tender, nondistended. Normoactive bowel sounds x4. MUSCULOSKELETAL:Extremities without clubbing, cyanosis, or edema. Left upper extremity swelling with limited ROM. NEUROLOGICAL: Awake and alert. No obvious cranial nerve deficits. Motor grossly within normal limits. 5/5 muscle strength in bilateral upper and lower extremities. Normal speech. PSYCHIATRIC: Appropriate mood and affect; insight and judgment normal. Results - Labs CBC & Chem 7: 06/27/18 11:30 06/28/18 08:28 Laboratory Results - last 24 hr 06/27/18 06/27/18 06/27/18 11:30 11:30 11:30 WBC 9.5 RBC 4.38 L Hgb 13.1 Hct 37.8 L MCV 86.4 MCH 29.8 MCHC 34.5 RDW 22.4 H Plt Count 210 MPV 9.5 Neut % (Auto) 74.1 H Lymph % (Auto) 12.3 [place] % (Auto) 9.8 H Eos % (Auto) 2.6 Baso % (Auto) 1.2 Neut # (Auto) 7.0 Lymph # (Auto) 1.2 [place] # (Auto) 0.9 Eos # (Auto) 0.3 Baso # (Auto) 0.1 WBC Differential . Differential Comment Auto diff final PT 13.0 H INR 1.3 D-Dimer Quant (PE/DVT) 1.39 H Sodium 134 L Potassium 4.5 Chloride 100 Carbon Dioxide 25.8 Anion Gap 8 BUN 11 Creatinine 0.76 Estimated GFR Greater than 89 POC Glucose Random Glucose 238 H Hemoglobin A1c Calcium 7.7 L Magnesium 1.8 Total Bilirubin 0.8 Direct Bilirubin Indirect Bilirubin AST 286 H ALT 558 H Alkaline Phosphatase 796 H Troponin I Less than 0.02 L B-Natriuretic Peptide Total Protein 7.2 Albumin 2.6 L Urine Color Urine Clarity Urine pH Ur Specific [place] Urine Protein Urine Glucose (UA) Urine Ketones Urine Occult Blood Urine Nitrate Urine Bilirubin Urine Urobilinogen Ur Leukocyte Esterase Urine RBC Urine WBC Urine Mucus Micro UA Comment Ur Microscopic Review Urine Culture Comments Urine Opiates Screen Ur Barbiturates Screen Ur Amphetamines Screen U Benzodiazepines Scrn Urine Cocaine Screen U Cannabinoids Screen Serum Alcohol Chlam trachomat DNA PCR N.gonorrhoeae DNA (PCR) 06/27/18 06/27/18 06/27/18 11:30 11:30 11:30 WBC RBC Hgb Hct MCV MCH MCHC RDW Plt Count MPV Neut % (Auto) Lymph % (Auto) [place] % (Auto) Eos % (Auto) Baso % (Auto) Neut # (Auto) Lymph # (Auto) [place] # (Auto) Eos # (Auto) Baso # (Auto) WBC Differential Differential Comment PT INR D-Dimer Quant (PE/DVT) Sodium Potassium Chloride Carbon Dioxide Anion Gap BUN Creatinine Estimated GFR POC Glucose Random Glucose Hemoglobin A1c 7.4 H Calcium Magnesium Total Bilirubin Direct Bilirubin Indirect Bilirubin AST ALT Alkaline Phosphatase Troponin I B-Natriuretic Peptide 54 Total Protein Albumin Urine Color Urine Clarity Urine pH Ur Specific [place] Urine Protein Urine Glucose (UA) Urine Ketones Urine Occult Blood Urine Nitrate Urine Bilirubin Urine Urobilinogen Ur Leukocyte Esterase Urine RBC Urine WBC Urine Mucus Micro UA Comment Ur Microscopic Review Urine Culture Comments Urine Opiates Screen Ur Barbiturates Screen Ur Amphetamines Screen U Benzodiazepines Scrn Urine Cocaine Screen U Cannabinoids Screen Serum Alcohol Less than 3 Chlam trachomat DNA PCR N.gonorrhoeae DNA (PCR) 06/27/18 06/27/18 06/27/18 11:38 11:38 11:38 WBC RBC Hgb Hct MCV MCH MCHC RDW Plt Count MPV Neut % (Auto) Lymph % (Auto) [place] % (Auto) Eos % (Auto) Baso % (Auto) Neut # (Auto) Lymph # (Auto) [place] # (Auto) Eos # (Auto) Baso # (Auto) WBC Differential Differential Comment PT INR D-Dimer Quant (PE/DVT) Sodium Potassium Chloride Carbon Dioxide Anion Gap BUN Creatinine Estimated GFR POC Glucose Random Glucose Hemoglobin A1c Calcium Magnesium Total Bilirubin Direct Bilirubin Indirect Bilirubin AST ALT Alkaline Phosphatase Troponin I B-Natriuretic Peptide Total Protein Albumin Urine Color Yellow Urine Clarity Hazy H Urine pH 5.0 Ur Specific [place] 1.021 Urine Protein Negative Urine Glucose (UA) 500 or greater Urine Ketones Negative Urine Occult Blood Small H Urine Nitrate Negative Urine Bilirubin Negative Urine Urobilinogen 4 or greater Ur Leukocyte Esterase Negative Urine RBC 3 Urine WBC 1 Urine Mucus Few H Micro UA Comment Culture not ind Ur Microscopic Review Not Reportable Urine Culture Comments Culture not ind Urine Opiates Screen Neg Ur Barbiturates Screen Pos H Ur Amphetamines Screen Neg U Benzodiazepines Scrn Neg Urine Cocaine Screen Pos H U Cannabinoids Screen Pos H Serum Alcohol Chlam trachomat DNA PCR Not detected N.gonorrhoeae DNA (PCR) Not detected 06/27/18 06/28/18 06/28/18 21:21 08:09 08:28 WBC RBC Hgb Hct MCV MCH MCHC RDW Plt Count MPV Neut % (Auto) Lymph % (Auto) [place] % (Auto) Eos % (Auto) Baso % (Auto) Neut # (Auto) Lymph # (Auto) [place] # (Auto) Eos # (Auto) Baso # (Auto) WBC Differential Differential Comment PT INR D-Dimer Quant (PE/DVT) Sodium 131 L Potassium 6.0 H D Chloride 99 Carbon Dioxide 21.8 Anion Gap 10 BUN 27 H Creatinine 0.94 Estimated GFR 84 L POC Glucose 479 H* 388 H Random Glucose 374 H D Hemoglobin A1c Calcium 8.2 L Magnesium Total Bilirubin 1.1 H Direct Bilirubin 0.3 H Indirect Bilirubin 0.8 AST 191 H ALT 489 H Alkaline Phosphatase 832 H Troponin I B-Natriuretic Peptide Total Protein 7.6 Albumin 2.9 L Urine Color Urine Clarity Urine pH Ur Specific [place] Urine Protein Urine Glucose (UA) Urine Ketones Urine Occult Blood Urine Nitrate Urine Bilirubin Urine Urobilinogen Ur Leukocyte Esterase Urine RBC Urine WBC Urine Mucus Micro UA Comment Ur Microscopic Review Urine Culture Comments Urine Opiates Screen Ur Barbiturates Screen Ur Amphetamines Screen U Benzodiazepines Scrn Urine Cocaine Screen U Cannabinoids Screen Serum Alcohol Chlam trachomat DNA PCR N.gonorrhoeae DNA (PCR) - Imaging Impressions Elbow MRI 06/27/18 00:00 CONCLUSION: Distal myotendinous junction strain and hematoma of the lateral head of biceps without rupture. Scrotum Ultrasound 06/27/18 00:00 CONCLUSION: 1. Testes are within normal limits. 2. Nonspecific moderate right and small left hydrocele fluid. 3. Right inguinal hernia. Chest X-Ray 06/27/18 11:23 CONCLUSION: No acute cardiopulmonary disease identified. Foot X-Ray 06/27/18 11:23 CONCLUSION: Unremarkable study. Upper Extremity Ultrasound 06/27/18 11:23 CONCLUSION: Heterogeneous fluid collection at the biceps myotendinous junction suggesting hematoma in the proper clinical setting. Recommend MRI of the elbow to evaluate for biceps tendon rupture versus biceps muscle tear. Chest CTA 06/27/18 12:29 CONCLUSION: 1. No evidence of pulmonary embolism. 2. Mild infiltrates are noted in both lower lung bases posteriorly. Assessment and Plan - Assessment (1) COPD with exacerbation Code(s): J44.1 - Chronic obstructive pulmonary disease with (acute) exacerbation Status: Acute (2) Bilateral pneumonia Code(s): J18.9 - Pneumonia, unspecified organism Status: Acute - Plan This is a 53-year-old male patient with: COPD with exacerbation Bilateral community-acquired pneumonia -Patient complains of shortness of breath x 1 week. Tobacco history. -D-dimer elevated, CTA done showing mild bilateral infiltrates. Negative for PE. -Duo nebs scheduled and as needed. -Patient given IV steroids, will continue. Wean. -Encourage use of IS. -Given 1 dose of doxycycline in ED. Will continue. -Supplemental O2 as needed to keep sats greater than 90%. Comfortable on room air. No hypoxia noted. Left upper arm swelling and limited range of motion rule out biceps tendon rupture -Patient states he has had left upper arm swelling x 1 week. -MRI indicated hematoma and strain-recommend conservative management Right testicular pain and swelling -Will order for right testicle ultrasound. -Ultrasound showed only moderate hydrocele. Also noted inguinal hernia. -Toradol as needed. -Supportive care -patient to follow-up as outpatient Right lower extremity wound/cellulitis -Patient states he has expressed pus from wound, measuring roughly 3x3cm indurated area without fluctuance, does have surrounding erythema. No drainage at this time. -Continue Doxycycline, this should cover cellulitis. Elevated LFTs -Patient does admit to history of hepatitis C. Does not have insurance nor funds to pay for treatment. -Will monitor LFTs. Elevated random glucose -Glucose in the 200's on presentation. Will add Hemoglobin a1c. Pending. -No history of diabetes. -Accu check ACHS, sliding scale, cover as needed. Tobacco abuse: Encourage cessation. Nicotine patch. DVT prophylaxis: SCDs. Ambulation.
--- NOTE | 2018-06-28 12:05 | P.DS ---
Date of admission: 06/27/18 16:13 Primary care physician: UNKNOWN Attending physician on discharge: Omari Garcia Anticipated date of discharge: 06/28/18 Brief History from admission: This is a 53-year-old patient who presented to the ED with multiple complaints. He states that he has been short of breath for 1 week. He does have a history of COPD, does admit to smoking half pack per day cigarettes for many years. He also complains of left upper extremity pain and limited range of motion, he states that he was lifting something a week and half ago and since that time the pain is worsened as well as swelling. He denies numbness, tingling , weakness, of the extremity. It should also be noted that patient has complaints of pain to palpation at right testicle, testicle is swollen and enlarged and very painful to palpation. Patient does have a history of substance abuse, states that he last used IV drugs 2 weeks ago, denies any alcohol abuse. Patient does not follow with the primary care physician or [employer] assistant [employer] division. Patient denies any fevers, chills, headaches, chest pain, abdominal pain, nausea, vomiting, diarrhea or dysuria. He does state that he has had a productive cough over the last week, with yellow phlegm. Patient also states he hit his right foot on a cactus and has had a wound for over a month, was able to express pus from it several times but has not healed since. Denies any recent antibiotic use. He also complains of dysuria, urinary urgency and incontinence with right testicular pain and swelling. It should also be noted that patient has history of hepatitis C, states he always has pain to his right upper quadrant, liver is enlarged upon assessment today, he states he has not been treated for hepatitis C due to financial reasons. LFTs are elevated upon presentation. Case management has been consulted. DS: Diagnosis - Discharge Diagnosis (1) COPD with exacerbation Status: Acute (2) Bilateral pneumonia Status: Acute (3) Cellulitis of right foot Status: Acute DS: Medications - Discharge Medications Prescriptions: doxycycline hyclate 100 mg PO Q12HR #20 cap guaifenesin [Mucinex] 600 mg PO BID #14 tab ipratropium-albuterol 1 amp NEB Q6HR WHILE AWAKE NEB PRN #30 ml PRN Reason: Shortness Of Breath Or Wheezing prednisone 20 mg PO DAILY #4 tab DS: Summary Hospital Course: This is a 53-year-old male patient with: COPD with exacerbation Bilateral community-acquired pneumonia -Patient complains of shortness of breath x 1 week. Tobacco history. -D-dimer elevated, CTA done showing mild bilateral infiltrates. Negative for PE. -Duo nebs scheduled and as needed. -Patient given IV steroids, will continue. Wean. -Encourage use of IS. -Given 1 dose of doxycycline in ED. Will continue. -Supplemental O2 as needed to keep sats greater than 90%. Comfortable on room air. No hypoxia noted. Left upper arm swelling and limited range of motion rule out biceps tendon rupture -Patient states he has had left upper arm swelling x 1 week. -MRI indicated hematoma and strain-recommend conservative management Right testicular pain and swelling -Will order for right testicle ultrasound. -Ultrasound showed only moderate hydrocele. Also noted inguinal hernia. -Toradol as needed. -Supportive care -patient to follow-up as outpatient Right lower extremity wound/cellulitis -Patient states he has expressed pus from wound, measuring roughly 3x3cm indurated area without fluctuance, does have surrounding erythema. No drainage at this time. -Continue Doxycycline, this should cover cellulitis. Elevated LFTs -Patient does admit to history of hepatitis C. Does not have insurance nor funds to pay for treatment. -Will monitor LFTs. Elevated random glucose -Glucose in the 200's on presentation. Will add Hemoglobin a1c. Pending. -No history of diabetes. -Accu check ACHS, sliding scale, cover as needed. Tobacco abuse: Encourage cessation. Nicotine patch. DVT prophylaxis: SCDs. Ambulation. - Time Spent with Patient Total time spent providing and/or coordinating discharge services: Less than 30 minutes - Quality: VTE Deep Vein Thrombosis/Pulmonary Embolism Present on Admission: No Exam Vital signs: Vital Signs 06/27/18 15:55 06/27/18 18:09 06/27/18 23:32 Temperature 98.2 F Pulse Rate 78 64 Respiratory Rate 17 18 Blood Pressure 126/65 126/81 Pulse Oximetry 100 97 97 06/28/18 03:58 06/28/18 08:00 06/28/18 08:47 Temperature 97.5 F L 97.9 F Pulse Rate 52 L 57 L 61 Respiratory Rate 16 16 16 Blood Pressure 135/82 143/87 H Pulse Oximetry 96 98 97 Intake & Output 06/27/18 06/28/18 06/28/18 18:59 06:59 18:59 Intake Total 1500 / 1500 220 / 220 Output Total 250 / 250 Balance 1500 / 1500 -30 / -30 Weight 61.235 kg 61.235 kg Intake: IV 1000 / 1000 NS Inj 1,000 ML @ Wide Open IV. 1000 / 1000 SIG BOLUS ONE Rx#:[id number] Oral 500 / 500 220 / 220 Output: Urine 250 / 250 Other: # Voids 1 Date of Last Bowel Movement 06/27/18 06/27/18 Weight On Admission 61.235 kg Narrative: GENERAL: Well-developed, well-nourished patient in [facility]. SKIN: Warm and dry. No rash. Right lower extremity wound measuring roughly 3x3cm indurated area without fluctuance, does have surrounding erythema. HEAD: Normocephalic. Atraumatic. CARDIOVASCULAR: Regular rate and rhythm. RESPIRATORY: No accessory muscle use. Mild wheezing. Breath sounds equal bilaterally. GASTROINTESTINAL: Abdomen soft, non-tender, nondistended. Normoactive bowel sounds x4. MUSCULOSKELETAL:Extremities without clubbing, cyanosis, or edema. Left upper extremity swelling with limited ROM. NEUROLOGICAL: Awake and alert. No obvious cranial nerve deficits. Motor grossly within normal limits. 5/5 muscle strength in bilateral upper and lower extremities. Normal speech. PSYCHIATRIC: Appropriate mood and affect; insight and judgment normal. Results Procedures completed during hospitalization: none Labs on day of discharge: Labs from last 24 hours 06/28/18 06/28/18 06/27/18 08:28 08:09 21:21 WBC RBC Hgb Hct MCV MCH MCHC RDW Plt Count MPV Neut % (Auto) Lymph % (Auto) [place] % (Auto) Eos % (Auto) Baso % (Auto) Neut # (Auto) Lymph # (Auto) [place] # (Auto) Eos # (Auto) Baso # (Auto) WBC Differential Differential Comment PT INR D-Dimer Quant (PE/DVT) Sodium 131 L Potassium 6.0 H D Chloride 99 Carbon Dioxide 21.8 Anion Gap 10 BUN 27 H Creatinine 0.94 Estimated GFR 84 L POC Glucose 388 H 479 H* Random Glucose 374 H D Hemoglobin A1c Calcium 8.2 L Magnesium Total Bilirubin 1.1 H Direct Bilirubin 0.3 H Indirect Bilirubin 0.8 AST 191 H ALT 489 H Alkaline Phosphatase 832 H Troponin I B-Natriuretic Peptide Total Protein 7.6 Albumin 2.9 L Urine Color Urine Clarity Urine pH Ur Specific [place] Urine Protein Urine Glucose (UA) Urine Ketones Urine Occult Blood Urine Nitrate Urine Bilirubin Urine Urobilinogen Ur Leukocyte Esterase Urine RBC Urine WBC Urine Mucus Micro UA Comment Ur Microscopic Review Urine Culture Comments Urine Opiates Screen Ur Barbiturates Screen Ur Amphetamines Screen U Benzodiazepines Scrn Urine Cocaine Screen U Cannabinoids Screen Serum Alcohol Chlam trachomat DNA PCR N.gonorrhoeae DNA (PCR) 06/27/18 06/27/18 06/27/18 11:38 11:38 11:38 WBC RBC Hgb Hct MCV MCH MCHC RDW Plt Count MPV Neut % (Auto) Lymph % (Auto) [place] % (Auto) Eos % (Auto) Baso % (Auto) Neut # (Auto) Lymph # (Auto) [place] # (Auto) Eos # (Auto) Baso # (Auto) WBC Differential Differential Comment PT INR D-Dimer Quant (PE/DVT) Sodium Potassium Chloride Carbon Dioxide Anion Gap BUN Creatinine Estimated GFR POC Glucose Random Glucose Hemoglobin A1c Calcium Magnesium Total Bilirubin Direct Bilirubin Indirect Bilirubin AST ALT Alkaline Phosphatase Troponin I B-Natriuretic Peptide Total Protein Albumin Urine Color Yellow Urine Clarity Hazy H Urine pH 5.0 Ur Specific [place] 1.021 Urine Protein Negative Urine Glucose (UA) 500 or greater Urine Ketones Negative Urine Occult Blood Small H Urine Nitrate Negative Urine Bilirubin Negative Urine Urobilinogen 4 or greater Ur Leukocyte Esterase Negative Urine RBC 3 Urine WBC 1 Urine Mucus Few H Micro UA Comment Culture not ind Ur Microscopic Review Not Reportable Urine Culture Comments Culture not ind Urine Opiates Screen Neg Ur Barbiturates Screen Pos H Ur Amphetamines Screen Neg U Benzodiazepines Scrn Neg Urine Cocaine Screen Pos H U Cannabinoids Screen Pos H Serum Alcohol Chlam trachomat DNA PCR Not detected N.gonorrhoeae DNA (PCR) Not detected 06/27/18 06/27/18 06/27/18 11:30 11:30 11:30 WBC RBC Hgb Hct MCV MCH MCHC RDW Plt Count MPV Neut % (Auto) Lymph % (Auto) [place] % (Auto) Eos % (Auto) Baso % (Auto) Neut # (Auto) Lymph # (Auto) [place] # (Auto) Eos # (Auto) Baso # (Auto) WBC Differential Differential Comment PT INR D-Dimer Quant (PE/DVT) Sodium Potassium Chloride Carbon Dioxide Anion Gap BUN Creatinine Estimated GFR POC Glucose Random Glucose Hemoglobin A1c 7.4 H Calcium Magnesium Total Bilirubin Direct Bilirubin Indirect Bilirubin AST ALT Alkaline Phosphatase Troponin I B-Natriuretic Peptide 54 Total Protein Albumin Urine Color Urine Clarity Urine pH Ur Specific [place] Urine Protein Urine Glucose (UA) Urine Ketones Urine Occult Blood Urine Nitrate Urine Bilirubin Urine Urobilinogen Ur Leukocyte Esterase Urine RBC Urine WBC Urine Mucus Micro UA Comment Ur Microscopic Review Urine Culture Comments Urine Opiates Screen Ur Barbiturates Screen Ur Amphetamines Screen U Benzodiazepines Scrn Urine Cocaine Screen U Cannabinoids Screen Serum Alcohol Less than 3 Chlam trachomat DNA PCR N.[email or web address] DNA (PCR) 06/27/18 06/27/18 06/27/18 11:30 11:30 11:30 WBC 9.5 RBC 4.38 L Hgb 13.1 Hct 37.8 L MCV 86.4 MCH 29.8 MCHC 34.5 RDW 22.4 H Plt Count 210 MPV 9.5 Neut % (Auto) 74.1 H Lymph % (Auto) 12.3 [place] % (Auto) 9.8 H Eos % (Auto) 2.6 Baso % (Auto) 1.2 Neut # (Auto) 7.0 Lymph # (Auto) 1.2 [place] # (Auto) 0.9 Eos # (Auto) 0.3 Baso # (Auto) 0.1 WBC Differential . Differential Comment Auto diff final PT 13.0 H INR 1.3 D-Dimer Quant (PE/DVT) 1.39 H Sodium 134 L Potassium 4.5 Chloride 100 Carbon Dioxide 25.8 Anion Gap 8 BUN 11 Creatinine 0.76 Estimated GFR Greater than 89 POC Glucose Random Glucose 238 H Hemoglobin A1c Calcium 7.7 L Magnesium 1.8 Total Bilirubin 0.8 Direct Bilirubin Indirect Bilirubin AST 286 H ALT 558 H Alkaline Phosphatase 796 H Troponin I Less than 0.02 L B-Natriuretic Peptide Total Protein 7.2 Albumin 2.6 L Urine Color Urine Clarity Urine pH Ur Specific [place] Urine Protein Urine Glucose (UA) Urine Ketones Urine Occult Blood Urine Nitrate Urine Bilirubin Urine Urobilinogen Ur Leukocyte Esterase Urine RBC Urine WBC Urine Mucus Micro UA Comment Ur Microscopic Review Urine Culture Comments Urine Opiates Screen Ur Barbiturates Screen Ur Amphetamines Screen U Benzodiazepines Scrn Urine Cocaine Screen U Cannabinoids Screen Serum Alcohol Chlam trachomat DNA PCR N.[email or web address] DNA (PCR) - Impressions ITS Impressions Elbow MRI 06/27/18 00:00 CONCLUSION: Distal myotendinous junction strain and hematoma of the lateral head of biceps without rupture. Scrotum Ultrasound 06/27/18 00:00 CONCLUSION: 1. Testes are within normal limits. 2. Nonspecific moderate right and small left hydrocele fluid. 3. Right inguinal hernia. Chest X-Ray 06/27/18 11:23 CONCLUSION: No acute cardiopulmonary disease identified. Foot X-Ray 06/27/18 11:23 CONCLUSION: Unremarkable study. Upper Extremity Ultrasound 06/27/18 11:23 CONCLUSION: Heterogeneous fluid collection at the biceps myotendinous junction suggesting hematoma in the proper clinical setting. Recommend MRI of the elbow to evaluate for biceps tendon rupture versus biceps muscle tear. Chest CTA 06/27/18 12:29 CONCLUSION: 1. No evidence of pulmonary embolism. 2. Mild infiltrates are noted in both lower lung bases posteriorly. Discharge Plan - Discharge Disposition Patient Disposition: 01 Discharge Home - Discharge Condition Condition: Stable - Discharge Order Discharge Orders: Discharge Order (Routine); Ordered 06/28/18 Ordered By: Antonia Downs - Physicians Team Primary Care Provider: UNKNOWN, Attending Provider: Omari Garcia
[2018-06-28 12:16] VITALS: BP 149/78; TEMP 98.9
[2018-06-28 12:32] LABS: Baso % (Auto) 0.2 % (0.0-2.0); Hematocrit 37.2 % (39.0-51.0); Hemoglobin 12.6 gm/dL (13.0-17.0); Lymph # (Auto) 0.7 th/mm3 (1.0-4.8); Lymph % (Auto) 6.8 % (9.0-44.0); Mean Corpuscular HGB Conc 33.9 % (32.0-36.0); Mean Corpuscular Hemoglobin 29.5 pg (27.0-34.0); Mean Corpuscular Volume 87.1 fL (80.0-100.0); Mean Platelet Volume 9.3 fL (7.0-11.0); Mono # (Auto) 0.8 th/mm3 (0.0-0.9); Mono % (Auto) 7.3 % (0.0-8.0); Neut # (Auto) 9.3 th/mm3 (1.8-7.7); Neut % (Auto) 85.7 % (16.0-70.0); Platelet Count 215 th/mm3 (150-450); Red Blood Count 4.28 mil/mm3 (4.50-5.90); Red Cell Distribution Width 22.3 % (11.6-17.2); White Blood Count 10.9 th/mm3 (4.0-11.0)
[2018-06-28 13:38] LABS: Hepatitits B Surface Antigen Reactive (Nonreactive)
[2018-06-28 13:56] LABS: Hepatitis A IgM Antibody Nonreactive (Nonreactive)
[2018-06-28 15:02] VITALS: PULSE 86
--- NOTE | 2018-06-28 15:57 | ECG ---
Date Performed: 06/27/2018 Time Performed: 11:18:02 PTAGE: 53 years EKG: Sinus rhythm WITH FREQUENT SUPRAVENTRICULAR PREMATURE COMPLEXES Since previous tracing, no significant change not ed ABNORMAL RHYTHM ECG PREVIOUS TRACING : 06/28/2013 19.02.06 DOCTOR: Radha Rodarte Interpretating Date/Time 06/28/2018 15:55:43
[2018-06-29] MEDS ORDERED: predniSONE 20 MG Tablet PO SCH (09:00)
== END 2018-06-28 16:54 | disposition home or self-care (01) ==
LOC: NEPE 11:04 → NEDA 11:04 → NEPGCP 17:41
PROVIDERS: ADMIT Family Medicine; ATTEND Family Medicine